=== PATIENT | female | born 1990 | race Two or more races ===

== ENCOUNTER → 2016-11-14 | Day surgery (SDC) | payer BC ==
[~2016-11-14] MED LIST: IV RINGERS,LACTATED 1000ML 1,000 ML IV SCH; LIDOCAINE 1% 1 ML SYRINGE. ID PRN; LIDOCAINE 2% PF Vial for OR 5 ML VIAL. ONE; MIDAZOLAM HCL/PF 2 MG/2 ML VIAL. IV PRN; PROPOFOL 20 ML IV ONE; PROPOFOL 40 ML IV ONE; fentaNYL PF VIAL 100 MCG/2 ML VIAL IV PRN
[2016-11-14 09:47] LABS: NEG OBC UR NEG; POS OBC UR POS
[2016-11-14 10:57] VITALS: BP 110/71
--- NOTE | 2016-11-17 14:24 | PATHOLOGY ---
PATHOLOGY REPORT * * * * * * * * FINAL DIAGNOSIS: A. Duodenal biopsies: - No significant pathologic abnormalities. B. Random colon biopsies: - No significant pathologic abnormalities. (JPM:pit; 11/17/2016) COMMENT: Sections of the duodenal biopsy reveal segments of duodenal and small intestine mucosa. Where best oriented, the mucosal villi appear normal. There are no sprue-like changes or significant inflammatory changes. Sections of the random colon biopsy reveal multiple segments of colonic mucosa containing several mucosal-associated lymphoid aggregates. There is no evidence of a chronic destructive colitis, lymphocytic colitis or collagenous colitis. (JPM:pit; 11/17/2016) REPORT ELECTRONICALLY SIGNED BY: Eitan Menendez M.D. DATE/TIME: 11/17/2016 14:23 * * * * * * * * GROSS PATHOLOGY: A. Received in formalin labeled "Denise Herrera, duodenal biopsy rule out celiac disease," are multiple segments of neil soft tissue measuring 1.1 x 0.8 x 0.2 cm in aggregate dimensions and ranging from 0.2 to 0.4 cm in maximum dimension. The specimen is submitted entirely in cassette A1. B. Received in formalin labeled "Denise Herrera, random colon biopsies," are multiple segments of neil soft tissue measuring 1.4 x 0.8 x 0.2 cm in aggregate dimensions and ranging from 0.2 to 0.5 cm in maximum dimension. The specimen is submitted entirely in cassette B1. ([facility]; 11/14/2016) INITIAL CPT CODE(S): A; 27242 B; 63479 Professional services performed by [facility] at [address] [address] Technical services performed by [facility] at [address] [place] [address], [facility] [address] [address]. ELIO Vieyra SPECIMEN(S) RECEIVED: A.Duodenal biopsy B.Random colon biopsies CLINICAL HISTORY: Abdominal pain PATIENT: JEAN PIERRESCARDENISE J /AGE: 12 1990 (Age: 26) PATIENT #: [id number] ALT CASE #: SPECIMEN COLLECTION DATE: 11/14/2016 SPECIMEN RECEIVED DATE: 11/14/2016 [facility] - [address] [place] [address] - PHONE: [phone] * * * END OF REPORT * * *
== END | disposition home or self-care (01) ==
LOC: SURG 09:21
PROVIDERS: ATTEND Internal Medicine Gastroenterology
DX: K64.0 First degree hemorrhoids (principal); K29.50 Unspecified chronic gastritis without bleeding; K31.89 Other diseases of stomach and duodenum
CPT/HCPCS: 43239; 45380; 81025; 88305; J2704; J2001

== ENCOUNTER → 2016-12-03 | Outpatient (CLI) | payer BC ==
[2016-11-14 10:57] VITALS: BP 110/71
[~2016-12-03] VITALS: Ht 165.1 cm; Wt 93.0 kg
[~2016-12-03] MED LIST changes: -IV RINGERS,LACTATED 1000ML 1,000 ML IV SCH; -LIDOCAINE 1% 1 ML SYRINGE. ID PRN; -LIDOCAINE 2% PF Vial for OR 5 ML VIAL. ONE; -MIDAZOLAM HCL/PF 2 MG/2 ML VIAL. IV PRN; -PROPOFOL 20 ML IV ONE; -PROPOFOL 40 ML IV ONE; +SINCALIDE 2 MCG in IV NORMAL SALINE 50ML 30 ML IV ONE; -fentaNYL PF VIAL 100 MCG/2 ML VIAL IV PRN
--- NOTE | 2016-12-03 08:29 | RAD ---
EXAM: Abdomen sonogram. HISTORY: Pain. TECHNIQUE: Sonographic imaging of the abdomen was performed. COMPARISON: 05/19/2011. FINDINGS: The liver is normal in size. No focal hepatic lesion is seen. There is a 5 mm nonmobile echogenic lesion along the gallbladder wall, consistent with a polyp. The kidneys are normal in size. No solid or cystic renal lesion is seen. There is no hydronephrosis. The pancreas, spleen, aorta and inferior vena cava are unremarkable. IMPRESSION: 1. 5 mm gallbladder polyp. This is not seen on the prior study. 2. Otherwise, unremarkable abdomen sonogram.
--- NOTE | 2016-12-03 12:28 | RAD ---
EXAM: Nuclear hepatobiliary scan. HISTORY: Pain. TECHNIQUE: Following intravenous administration of 5.5 mCi Tc 99m Choletec, anterior images of the abdomen were obtained at five minute intervals through one hour. Subsequently, 2.0 mcg sincalide was administered and additional images to assess gallbladder ejection fraction were obtained. FINDINGS: There is prompt radiotracer uptake by the liver. No focal defect is seen. There is normal excretion into the biliary tree. The gallbladder is visualized within 30 minutes and there is free flow into the duodenum. The gallbladder ejection fraction is decreased at 22%. IMPRESSION: Decreased gallbladder ejection fraction of 22%.
== END | disposition home or self-care (01) ==
LOC: US 07:12
PROVIDERS: ATTEND Physician Assistant
DX: K82.4 Cholesterolosis of gallbladder (principal); R11.2 Nausea with vomiting, unspecified
CPT/HCPCS: 76700; 78226; 96374; 96375; A9537; J2805

== ENCOUNTER 2017-05-10 06:34 | Emergency (ER) | payer SELFPAY, BC | END 2017-05-10 07:14 | disposition home or self-care (01) | LOC: ER 06:34 | DX: H65.192 Other acute nonsuppurative otitis media, left ear (principal); H60.92 Unspecified otitis externa, left ear | CPT/HCPCS: 99283 ==

== ENCOUNTER 2018-12-23 20:05 | Emergency (ER) | payer BC ==
[~2018-12-23] VITALS: Ht 167.6 cm; Wt 97.5 kg
[~2018-12-23 20:05] MED LIST changes: +AMOX1TAB61 PO; +NEOM10SO7 OT; +OXYC1TAB15 PO; -SINCALIDE 2 MCG in IV NORMAL SALINE 50ML 30 ML IV ONE
--- NOTE | 2018-12-23 20:26 | PHYS DOC ---
Past Medical History Past Medical History: No Pertinent History Additional Past Medical Histor: "HEART WAS SLOW" Past Surgical History: Cholecystectomy Alcohol Use: None Drug Use: None Adult General Chief Complaint Chief Complaint: HEADACHE HPI HPI 28-year-old female presents to the emergency room with complaints of migraine headache. Patient states her headache started on Thursday persistent throughout the last couple of days. She describes history of migraines, with this one she's had some left blurry vision. She also describes nausea as well as vomiting. Blood pressure 04/03/71, heart rate 78. She denies any chest pain, shortness of breath, abdominal pain. Nothing makes her symptoms worse, nothing makes her symptoms better. Review of Systems Review of Systems Constitutional: Denies fever or chills [] Eyes: left eye blurry vision, redness, or eye pain [] HENT: Denies nasal congestion or sore throat [] Respiratory: Denies cough or shortness of breath [] Cardiovascular: No additional information not addressed in HPI [] GI: + nausea, + vomiting, no bloody stools or diarrhea [] : Denies dysuria or hematuria [] Musculoskeletal: Denies back pain or joint pain [] Integument: Denies rash or skin lesions [] Neurologic: Denies headache, focal weakness or sensory changes [] All other systems were reviewed and found to be within normal limits, except as documented in this note. Current Medications Current Medications Current Medications Medications (Trade) Dose Ordered Sig/Celia Start Time Stop Time Status Last Admin Dose Admin Diphenhydramine HCl (Benadryl) 50 mg 1X ONCE 12/23/18 21:45 12/23/18 21:46 DC 12/23/18 21:53 50 MG Ketorolac Tromethamine (Toradol 30mg Vial) 30 mg 1X ONCE 12/23/18 21:45 12/23/18 21:46 DC 12/23/18 21:53 30 MG Metoclopramide HCl (Reglan Vial) 10 mg 1X ONCE 12/23/18 21:45 12/23/18 21:46 DC 12/23/18 21:53 10 MG Sodium Chloride 1,000 ml @ 1,000 mls/hr 1X ONCE 12/23/18 21:00 12/23/18 21:59 DC 12/23/18 21:52 1,000 MLS/HR Allergies Allergies Allergies Coded Allergies Type Severity Reaction Last Updated Verified No Known Drug Allergies 11/14/16 No Physical Exam Physical Exam Constitutional: Well developed, well nourished, mild distress 2/2 pain, non- toxic appearance. [] HENT: Normocephalic, atraumatic, bilateral external ears normal, oropharynx moist, no oral exudates, nose normal. [] Eyes: PERRLA, EOMI, conjunctiva normal, no discharge. [] Neck: Normal range of motion, no tenderness, supple, no stridor. [] Cardiovascular:Heart rate regular rhythm, no murmur [] Lungs & Thorax: Bilateral breath sounds clear to auscultation [] Abdomen: Bowel sounds normal, soft, no tenderness, no masses, no pulsatile masses. [] Skin: Warm, dry, no erythema, no rash. [] Extremities: No tenderness, no cyanosis, no clubbing, ROM intact, no edema. [] Neurologic: Alert and oriented X 3, no focal deficits noted. [] Psychologic: Affect normal, judgement normal, mood normal. [] Current Patient Data Lab Values Laboratory Tests Test 12/23/18 20:31 12/23/18 20:40 12/23/18 21:00 POC Urine HCG, Qualitative Hcg negative (Negative) White Blood Count 7.8 x10^3/uL (4.0-11.0) Red Blood Count 4.85 x10^6/uL (3.50-5.40) Hemoglobin 14.0 g/dL (12.0-15.5) Hematocrit 41.1 % (36.0-47.0) Mean Corpuscular Volume 85 fL (79-100) Mean Corpuscular Hemoglobin 29 pg (25-35) Mean Corpuscular Hemoglobin Concent 34 g/dL (31-37) Red Cell Distribution Width 13.2 % (11.5-14.5) Platelet Count 255 x10^3/uL (140-400) Neutrophils (%) (Auto) 56 % (31-73) Lymphocytes (%) (Auto) 32 % (24-48) Monocytes (%) (Auto) 7 % (0-9) Eosinophils (%) (Auto) 3 % (0-3) Basophils (%) (Auto) 1 % (0-3) Neutrophils # (Auto) 4.4 x10^3/uL (1.8-7.7) Lymphocytes # (Auto) 2.5 x10^3/uL (1.0-4.8) Monocytes # (Auto) 0.6 x10^3/uL (0.0-1.1) Eosinophils # (Auto) 0.2 x10^3/uL (0.0-0.7) Basophils # (Auto) 0.1 x10^3/uL (0.0-0.2) Sodium Level 143 mmol/L (136-145) Potassium Level 3.4 mmol/L (3.5-5.1) L Chloride Level 107 mmol/L (98-107) Carbon Dioxide Level 27 mmol/L (21-32) Anion Gap 9 (6-14) Blood Urea Nitrogen 13 mg/dL (7-20) Creatinine 0.9 mg/dL (0.6-1.0) Estimated GFR (Cockcroft-Gault) 75.1 BUN/Creatinine Ratio 14 (6-20) Glucose Level 99 mg/dL (70-99) Calcium Level 8.8 mg/dL (8.5-10.1) Total Bilirubin 0.3 mg/dL (0.2-1.0) Aspartate Amino Transferase (AST) 21 U/L (15-37) Alanine Aminotransferase (ALT) 32 U/L (14-59) Alkaline Phosphatase 102 U/L (46-116) Total Protein 7.3 g/dL (6.4-8.2) Albumin 3.7 g/dL (3.4-5.0) Albumin/Globulin Ratio 1.0 (1.0-1.7) Laboratory Tests 12/23/18 20:40 Laboratory Tests 12/23/18 21:00 EKG EKG [] Radiology/Procedures Radiology/Procedures [facility] [address] [place], [place] [id number] IMAGING REPORT Signed PATIENT: SHAYY GREENFIELD ACCOUNT: [id number] : 1990 LOCATION: ER AGE: 28 SEX: F EXAM STATUS: REG ER ORD. PHYSICIAN: CARMITA KWONG MD REASON: headache (since Thursday), migraine history PROCEDURE: CT HEAD WO CONTRAST CT Head W/O Contrast: History: Headache Comparison: none Axial images were obtained without contrast. The gordon and white matter appears normal and symmetrical for the patients age. There is no mass effect, extraaxial fluid collections or hydrocephalus. There is no gross bleed. There is no focal loss of gordon-white matter distinction to suggest acute ischemia, i.e. stroke. Impression: No acute findings. PQRS Compliance Statement: One or more of the following individualized dose reduction techniques were utilized for this examination: 1. Automated exposure control 2. Adjustment of the mA and/or kV according to patient size 3. Use of iterative reconstruction technique Electronically signed by: Rachel Johnson III, MD (12/23/2018 9:17 PM) [facility] DICTATED and SIGNED BY: RACHEL JOHNSON III, MD DATE: 12/23/182116 [] Course & Med Decision Making Course & Med Decision Making Pertinent Labs and Imaging studies reviewed. (See chart for details) []28-year-old female presents to the emergency room with complaints of migraine headache. Patient states her headache started on Thursday persistent throughout the last couple of days. She describes history of migraines, with this one she's had some left blurry vision. She also describes nausea as well as vomiting. Blood pressure 04/03/71, heart rate 78. She denies any chest pain, shortness of breath, abdominal pain. Nothing makes her symptoms worse, nothing makes her symptoms better. CT head negative for acute process Labs reviewed Reglan, benadryl, Toradol IV NS IVF Bolus Patient evaluated at 2245 states her pain in her head is resolved, her blurry vision has resolved as well. I'm for discharge at this time. Discussed with patient regarding follow-up with the primary care physician and maintenance therapy regarding migraine headaches. Dragon Disclaimer Dragon Disclaimer This electronic medical record was generated, in whole or in part, using a voice recognition dictation system. Departure Departure Impression: Primary Impression: Migraine headache Disposition: 01 HOME, SELF-CARE Condition: STABLE Referrals: UNKNOWN PCP NAME (PCP) Patient Instructions: Migraine Headache, [id number] Additional Instructions: Recommend follow up with PCP 3 - 5 days to discuss maintenance medications regarding migraines Return to the ER with worsening symptoms, intractable pain, fever, altered mental status Tylenol/Motrin as needed for pain Problem Qualifiers Primary Impression: Migraine headache Migraine type: unspecified Status migrainosus presence: without status migrainosus Intractability: intractable Qualified Codes: G43.919 - Migraine, unspecified, intractable, without status migrainosus CARMITA KWONG MD Dec 23, 2018 20:26
[2018-12-23 20:47] LABS: BASO # 0.1 x10^3/uL (0.0-0.2); BASO % 1 % (0-3); EOS # 0.2 x10^3/uL (0.0-0.7); EOS % 3 % (0-3); HEMATOCRIT 41.1 % (36.0-47.0); LYMPH # 2.5 x10^3/uL (1.0-4.8); LYMPH % 32 % (24-48); MEAN CORPUSCULAR HEMOGLOBIN 29 pg (25-35); MEAN CORPUSCULAR HGB CONC 34 g/dL (31-37); MEAN CORPUSCULAR VOLUME 85 fL (79-100); MONO # 0.6 x10^3/uL (0.0-1.1); MONO % 7 % (0-9); NEUT # 4.4 x10^3/uL (1.8-7.7); NEUT % 56 % (31-73); PLATELET COUNT 255 x10^3/uL (140-400); RED BLOOD COUNT 4.85 x10^6/uL (3.50-5.40); RED CELL DISTRIBUTION WIDTH 13.2 % (11.5-14.5); WHITE BLOOD COUNT 7.8 x10^3/uL (4.0-11.0)
[2018-12-23] MEDS ORDERED: IV NORMAL SALINE 1000ML BAG 1,000 ML IV ONE (21:00)
--- NOTE | 2018-12-23 21:20 | RAD ---
CT Head W/O Contrast: History: Headache Comparison: none Axial images were obtained without contrast. The gordon and white matter appears normal and symmetrical for the patients age. There is no mass effect, extraaxial fluid collections or hydrocephalus. There is no gross bleed. There is no focal loss of gordon-white matter distinction to suggest acute ischemia, i.e. stroke. Impression: No acute findings. RS Compliance Statement: One or more of the following individualized dose reduction techniques were utilized for this examination: 1. Automated exposure control 2. Adjustment of the mA and/or kV according to patient size 3. Use of iterative reconstruction technique Electronically signed by: Jose Armando Flores III, MD (12/23/2018 9:17 PM) [facility]
[2018-12-23 21:28] LABS: CALCIUM 8.8 mg/dL (8.5-10.1); CREATININE 0.9 mg/dL (0.6-1.0); GFR 75.1; POTASSIUM 3.4 mmol/L (3.5-5.1)
[2018-12-23 21:40] LABS: ALBUMIN 3.7 g/dL (3.4-5.0); TOTAL BILIRUBIN 0.3 mg/dL (0.2-1.0); TOTAL PROTEIN 7.3 g/dL (6.4-8.2)
[2018-12-23] MEDS ORDERED: KETOROLAC 30 MG/ML VIAL. IVP ONE (21:45)
[2018-12-23] MEDS ORDERED: diphenhydrAMINE 50 MG/ML VIAL IVP ONE (21:45)
[2018-12-23] MEDS ORDERED: METOCLOPRAMIDE HCL 10 MG/2 ML VIAL. IVP ONE (21:45)
[2018-12-24 00:03] VITALS: BP 111/67
== END 2018-12-24 00:23 | disposition home or self-care (01) ==
LOC: ER 20:05
DX: G43.919 Migraine, unspecified, intractable, without status migrainosus (principal); R11.2 Nausea with vomiting, unspecified; Z90.49 Acquired absence of other specified parts of digestive tract
CPT/HCPCS: 36415; 70450; 80053; 81025; 85025; 96361; 96374; 96375; 99285; J1200; J1885; J2765; J7030

== ENCOUNTER 2019-03-15 07:53 | Emergency (ER) | payer BC ==
[~2019-03-15] VITALS: Ht 167.6 cm; Wt 96.6 kg
--- NOTE | 2019-03-15 08:51 | PHYS DOC ---
Past Medical History Past Medical History: No Pertinent History Additional Past Medical Histor: "HEART WAS SLOW" Past Surgical History: Cholecystectomy Alcohol Use: None Drug Use: None Adult General Chief Complaint Chief Complaint: KNEE INJURY [facility] HPI Patient is a 29 year old without history of medical problem who presents with complaint of right knee injury. Patient states she had right knee injury 3 years ago and since then has had episodes of giving up of her knee. Patient states she had another episode of giving of her knee at 1 AM today and fell and landed on right knee without loss of consciousness or other injuries. Patient rated her right knee 8/10 and denies focal neuro deficit. Review of Systems Review of Systems Constitutional: Denies fever or chills [] Eyes: Denies change in visual acuity, redness, or eye pain [] HENT: Denies nasal congestion or sore throat [] Respiratory: Denies cough or shortness of breath [] Cardiovascular: No additional information not addressed in HPI [] GI: Denies abdominal pain, nausea, vomiting, bloody stools or diarrhea [] : Denies dysuria or hematuria [] Musculoskeletal: Denies back pain, reports joint pain [] Integument: Denies rash or skin lesions [] Neurologic: Denies headache, focal weakness or sensory changes [] Endocrine: Denies polyuria or polydipsia [] All other systems were reviewed and found to be within normal limits, except as documented in this note. Current Medications Current Medications Current Medications Medications (Trade) Dose Ordered Sig/Celia Start Time Stop Time Status Last Admin Dose Admin Acetaminophen/ Hydrocodone Bitart (Lortab 5/325) 1 tab 1X ONCE 03/15/19 09:00 03/15/19 09:01 DC 03/15/19 08:55 1 TAB Allergies Allergies Allergies Coded Allergies Type Severity Reaction Last Updated Verified No Known Drug Allergies 11/14/16 No Physical Exam Physical Exam Constitutional: Well developed, well nourished, mild distress, non-toxic appearance. [] HENT: Normocephalic, atraumatic. Eyes: PERRLA, EOMI, conjunctiva normal, no discharge. [] Neck: Normal range of motion, no tenderness, supple, no stridor. [] Cardiovascular:Heart rate regular rhythm, no murmur [] Lungs & Thorax: Bilateral breath sounds clear to auscultation [] Back: No tenderness, no CVA tenderness. [] Extremities: Right knee without edema or ecchymosis, painful range of motion, No tenderness, no cyanosis, no clubbing, no edema. [] Neurologic: Alert and oriented X 3, no focal deficits noted. [] Psychologic: Affect normal, judgement normal, mood normal. [] Current Patient Data Vital Signs Vital Signs Date Time Temp Pulse Resp B/P (MAP) Pulse Ox O2 Delivery O2 Flow Rate FiO2 03/15/19 08:55 19 97 Room Air 03/15/19 08:10 97.7 70 121/58 (79) 97.7 EKG EKG [] Radiology/Procedures Radiology/Procedures [][facility] [address] [place], [place] [id number] IMAGING REPORT Signed PATIENT: SHAYY GREENFIELD ACCOUNT: [id number] : 1990 LOCATION: ER AGE: 29 SEX: F EXAM STATUS: REG ER ORD. PHYSICIAN: MATEUSZ VALENTINE MD REASON: fall PROCEDURE: KNEE RIGHT 4V Examination: KNEE RIGHT 4V History: Fall, pain Comparison/Correlation: None Findings: Total of 4 images of the right knee were obtained including patellar sunrise view. Joint spaces are normal. No acute fracture or bony destruction. Minimal knee joint effusion is present. No degenerative change. Impression: Minimal knee joint effusion. Electronically signed by: Crispin Cheney MD (03/15/2019 9:49 AM) [facility] DICTATED and SIGNED BY: CRISPIN CHENEY MD DATE: 03/15/19 0949 Course & Med Decision Making Course & Med Decision Making Pertinent Imaging studies reviewed. (See chart for details) I've spoken with the patient and/or caregivers. I've explained the patient's condition, diagnosis and treatment plan based on information available to me at this time. I've answered the patient's and/or caregivers questions and addressed any concerns. The patient and/or caregivers have a good understanding the patient's diagnosis, condition and treatment plan as can be expected at this point. Vital signs have been stabilized. The patient's condition is stable for discharge from the emergency department. The patient will pursue further outpatient evaluation with her primary care provider or other designated consulting physician as outlined in the discharge instructions. Patient and/or caregivers are agreeable to this plan of care and follow-up instructions have been explained in detail. The patient and/or caregivers have received these instructions in written format and expressed understanding of these discharge instructions. The patient and her caregivers are aware that if any significant change in condition or worsening of symptoms should prompt him to immediately return to this of the closest emergency department. If an emergent department is not readily available I would encourage him to call 911. Dragon Disclaimer Dragon Disclaimer This electronic medical record was generated, in whole or in part, using a voice recognition dictation system. Departure Departure Impression: Primary Impression: Knee effusion, right Additional Impression: Right knee injury Disposition: HOME, SELF-CARE (at 1001) Condition: IMPROVED Referrals: UNKNOWN PCP NAME (PCP) LINDSEY POOLE MD Patient Instructions: Knee Effusion Additional Instructions: Apply ice on right knee Follow-up with your primary care physician in 3-5 days Return to ER if not getting better Thank you for visiting [facility]. We appreciate you trusting us with your care. If any additional problems come up don't hesitate to return to visit us. Please follow up with your primary care provider so they can plan additional care if needed and know about the problem that you had. If symptoms worsen come back to the Emergency Department. Any concerning symptoms that start such as chest pain, shortness of air, weakness or numbness on one side of the body, running high fevers or any other concerning symptoms return to the ER. Scripts Hydrocodone/Apap 5-325 (NORCO 5-325 TABLET) 1 Each Tablet 1 TAB PO PRN Q6HRS PRN for PAIN, #10 TAB 0 Refills Prov: MATEUSZ VALENTINE MD 03/15/19 Naproxen (NAPROSYN) 500 Mg Tablet 1 TAB PO BID for pain, #20 TAB Prov: MATEUSZ VALENTINE MD 03/15/19 Problem Qualifiers Additional Impression: Right knee injury Encounter type: initial encounter Qualified Codes: S89.91XA - Unspecified injury of right lower leg, initial encounter MATEUSZ VALENTINE MD Mar 15, 2019 08:51
[2019-03-15] MEDS: HYDROcodone/APAP 5/325MG 1 TAB TABLET PO ONE (08:55)
--- NOTE | 2019-03-15 09:52 | RAD ---
Examination: KNEE RIGHT 4V History: Fall, pain Comparison/Correlation: None Findings: Total of 4 images of the right knee were obtained including patellar sunrise view. Joint spaces are normal. No acute fracture or bony destruction. Minimal knee joint effusion is present. No degenerative change. Impression: Minimal knee joint effusion. Electronically signed by: Crispin Whitman MD (03/15/2019 9:49 AM) [facility]
[2019-03-15] MEDS ORDERED: HYDR-3164 PO (10:05)
[2019-03-15] MEDS ORDERED: NAPR-683 PO (10:05)
[2019-03-15 10:30] VITALS: BP 107/62
== END 2019-03-15 10:30 | disposition home or self-care (01) ==
LOC: ER 07:53
DX: S89.81XA Other specified injuries of right lower leg, initial encounter (principal); M25.461 Effusion, right knee; Z90.49 Acquired absence of other specified parts of digestive tract; Z98.890 Other specified postprocedural states; W18.39XA Other fall on same level, initial encounter; Y93.89 Activity, other specified; Y92.89 Other specified places as the place of occurrence of the external cause; Y99.8 Other external cause status
CPT/HCPCS: 73564; 99284

== ENCOUNTER 2019-10-08 23:39 | Emergency (ER) | payer SELFPAY ==
[~2019-10-08] VITALS: Ht 167.6 cm; Wt 82.3 kg
[~2019-10-08 23:39] MED LIST changes: +HYDR-3164 PO; +NAPR-683 PO
--- NOTE | 2019-10-08 23:58 | PHYS DOC ---
Past Medical History Additional Past Medical Histor: "HEART WAS SLOW", Ovarian cysts Past Surgical History: Cholecystectomy Smoking Status: Never Smoker Alcohol Use: None Drug Use: None General Adult EDM: Chief Complaint: CHEST PAIN-CARDIAC NATURE HPI: HPI: 29-year-old female presents with report of chest pain with radiation down her right arm and shoulder which started tonight. Patient also complains of 1 month history of left lower quadrant abdominal pain with associated nausea and vomiting. Patient denies any diarrhea. Patient does report she has lost ap proximately 17 pounds within the last month due to her consistent nausea and vomiting. Denies known sick contacts. Patient reports she currently does not have insurance and therefore had difficulty finding a physician to follow with. Reports she was able to get an appointment but is not until the middle of October. Patient reports concern tonight due to this new chest pain. Denies leg swelling or calf tenderness. Denies history or family history of PE/DVT. Patient does report history of ovarian cyst. Denies . Reports she currently has a Nexplanon implant. Review of Systems: Review of Systems: Constitutional: Denies fever or chills Eyes: Denies redness or eye pain HENT: Denies nasal congestion or sore throat Respiratory: Denies cough or shortness of breath Cardiovascular: Reports chest pain; denies palpitations GI: Reports left lower quadrant abdominal pain, nausea, and vomiting; denies diarrhea : Denies dysuria or hematuria Musculoskeletal: Denies back pain or joint pain Integument: Denies rash or skin lesions Neurologic: Denies headache, focal weakness or sensory changes Complete systems were reviewed and found to be within normal limits, except as documented in this note. Heart Score: HEART Score for Chest Pain: HEART Score for Chest Pain Response (Comments) Value History Slighlty/Non-Suspicious 0 ECG Normal 0 Age < 45 0 Risk Factors No Risk Factors 0 Troponin < Normal Limit 0 Total 0 Risk Factors: Risk Factors: DM, Current or recent (<one month) smoker, HTN, HLP, family history of CAD, obesity. Risk Scores: Score 0 - 3: 2.5% MACE over next 6 weeks - Discharge Home Score 4 - 6: 20.3% MACE over next 6 weeks - Admit for Clinical Observation Score 7 - 10: 72.7% MACE over next 6 weeks - Early Invasive Strategies Current Medications: Current Medications Medications (Trade) Dose Ordered Sig/Celia Start Time Stop Time Status Last Admin Dose Admin Famotidine (Pepcid Vial) 20 mg 1X ONCE 10/09/19 00:00 10/09/19 00:01 Sodium Chloride 1,000 ml @ 1,000 mls/hr 1X ONCE 10/09/19 00:00 10/09/19 00:59 Allergies: Allergies: Allergies Coded Allergies Type Severity Reaction Last Updated Verified No Known Drug Allergies 11/14/16 No Physical Exam: PE: Constitutional: Well developed, well nourished, anxious, non-toxic appearance HENT: Normocephalic, atraumatic Eyes: Conjunctiva normal, no discharge Neck: Normal range of motion, no tenderness, supple Lungs & Thorax: No respiratory distress, equal chest rise and fall Abdomen: Soft, left lower quadrant tenderness, no guarding/rebound tenderness/distention Skin: Warm, dry, no erythema, no rash Back: No tenderness, no CVA tenderness Extremities: No tenderness, ROM intact, no edema Neurologic: Alert and oriented X 3, no focal deficits noted Psychologic: Affect anxious, judgment normal EKG: EKG: @2347 Sinus bradycardia at 50bpm, NO ST elevation, QRS 80ms, QT/QTc 424/385ms Radiology/Procedures: Radiology/Procedures: PROCEDURE: CT ANGIO CHEST W ABD PEL W/ INDICATION: Reason: chest pain eval for PE, LLQ pain with N/V, OMNI 350, 90 ML IV / Spl. Instructions: / History: COMPARISON: None. TECHNIQUE: Axial CT images obtained through the chest, abdomen and pelvis with contrast. Three-dimensional images processed chest. One or more of the following individualized dose reduction techniques were utilized for this examination: 1. Automated exposure control; 2. Adjustment of the mA and/or kV according to patient size; 3. Use of iterative reconstruction technique. FINDINGS: Chest: No evidence of pneumothorax. Sub-4 mm nodule in the right lung, most commonly benign in a patient of this age. No focal airspace consolidation to suggest pneumonia. Portion of the descending thoracic aorta is obscured by motion. No aneurysm or dissection flap in the visualized portion of thoracic aorta. No definite pulmonary embolus. Mild limitation peripherally. Abdomen and pelvis: Postcholecystectomy changes. Mild low density of portal triads. No peripancreatic fluid collection. Spleen unremarkable. No hydronephrosis. Urinary bladder is partially distended. Uterus is visualized. No periappendiceal inflammatory changes. No dilated loops of bowel to suggest obstruction. IMPRESSION: * No central pulmonary embolus. * Mild low density of the portal triads. Correlate with symptoms and laboratory markers to ensure that there is not a pathologic cause such as cholangitis or hepatitis. Electronically signed by: Javier Tejada MD (10/09/2019 3:00 AM) [id number] Course & Med Decision Making: Course & Med Decision Making Pertinent Labs and Imaging studies reviewed. (See chart for details) Patient presents with report of atypical chest pain. No cardiac risk factors noted. EKG stable. Labs obtained and posted to chart. Initial troponin within normal limits. Patient also reports 1 month long history of left lower quadrant abdominal discomfort with associated nausea and vomiting. Reports she has lost 17 pounds in the last month. CTA chest and CT abdomen/pelvis with IV contrast obtained without significant finding. Patient does have a history of ovarian cysts and had continued to have discomfort. Ultrasound therefore obtained without findings consistent for ovarian torsion. Patient stable for discharge with outpatient follow-up with PCP/COLLEGE ADVISOR/GI. COLLEGE ADVISOR and GI referrals provided. Discussed findings and plan with patient, who acknowledges understanding and agreement. Dragon Disclaimer: Dragon Disclaimer: This electronic medical record was generated, in whole or in part, using a voice recognition dictation system. Departure Departure Impression: Primary Impression: Abdominal pain Qualified Codes: R10.32 - Left lower quadrant pain Additional Impression: Atypical chest pain Disposition: 01 HOME, SELF-CARE Condition: STABLE Referrals: UNKNOWN PCP NAME (PCP) TWIN MONAHAN Jr, MD, SCOTT S MD Patient Instructions: Abdominal Pain (Nonspecific), Chest Pain (Nonspecific), [id number] Scripts Hydrocodone/Apap 5-325 (NORCO 5-325 TABLET) 1 Each Tablet 0.5-1 TAB PO PRN Q6HRS PRN for PAIN, #10 TAB 0 Refills Prov: SURAJ LEOS DO 10/09/19 Ondansetron (ONDANSETRON ODT) 4 Mg Tab.rapdis 1 TAB PO PRN Q6-8HRS PRN for NAUSEA, #16 TAB Prov: SURAJ LEOS DO 10/09/19 Famotidine (PEPCID) 20 Mg Tablet 20 MG PO BID for 10 Days, #20 TAB Prov: SURAJ LEOS DO 10/09/19 Justicifation of Admission Dx: Justifications for Admission: Justification of Admission Dx: N/A SURAJ LEOS DO Oct 08, 2019 23:58
[2019-10-09] MEDS ORDERED: FAMOTIDINE 20 MG/2 ML VIAL IVP ONE
[2019-10-09 00:17] LABS: BASO # 0.1 x10^3/uL (0.0-0.2); BASO % 1 % (0-3); EOS # 0.2 x10^3/uL (0.0-0.7); EOS % 3 % (0-3); HEMATOCRIT 41.1 % (36.0-47.0); HEMOGLOBIN 13.9 g/dL (12.0-15.5); LYMPH # 3.6 x10^3/uL (1.0-4.8); LYMPH % 49 % (24-48); MEAN CORPUSCULAR HEMOGLOBIN 29 pg (25-35); MEAN CORPUSCULAR HGB CONC 34 g/dL (31-37); MEAN CORPUSCULAR VOLUME 85 fL (79-100); MONO # 0.7 x10^3/uL (0.0-1.1); MONO % 10 % (0-9); NEUT # 2.8 x10^3/uL (1.8-7.7); NEUT % 38 % (31-73); PLATELET COUNT 160 x10^3/uL (140-400); RED BLOOD COUNT 4.83 x10^6/uL (3.50-5.40); WHITE BLOOD COUNT 7.3 x10^3/uL (4.0-11.0)
[2019-10-09 00:27] LABS: CALCIUM 9.5 mg/dL (8.5-10.1); POTASSIUM 3.4 mmol/L (3.5-5.1)
[2019-10-09] MEDS ORDERED: KETOROLAC 15 MG/ML VIAL. IVP ONE (00:30)
[2019-10-09] MEDS ORDERED: ONDANSETRON PF 4 MG/2 ML VIAL. IVP ONE ×2 (00:30→02:00)
[2019-10-09 00:33] LABS: ALBUMIN 4.2 g/dL (3.4-5.0); ALBUMIN/GLOBULIN RATIO 1.2 (1.0-1.7); MAGNESIUM 2.2 mg/dL (1.8-2.4); TOTAL BILIRUBIN 0.5 mg/dL (0.2-1.0); TOTAL PROTEIN 7.7 g/dL (6.4-8.2)
[2019-10-09 00:42] LABS: CREATINE KINASE 75 U/L (26-192)
[2019-10-09] MEDS ORDERED: IOHEXOL 350 MG/ML 100 ML VIAL. IV ONE (01:00)
[2019-10-09] MEDS ORDERED: CONTRAST GIVEN. MC PRN (01:00)
[2019-10-09 01:20] LABS: PREG TEST PT QUAL NEGATIVE (NEG)
[2019-10-09 01:59] LABS: BILIRUBIN,URINE NEGATIVE (NEG); CLARITY,URINE CLEAR; COLOR,URINE YELLOW; NITRITE,URINE NEGATIVE (NEG); PROTEIN,URINE NEGATIVE (NEG-TRACE); UROBILINOGEN,URINE 0.2 mg/dL (0.2 mg/dL)
[2019-10-09 02:03] LABS: BACTERIA,URINE MODERATE /HPF (0-FEW); RBC,URINE 0 /HPF (0-2); SQUAMOUS EPITHELIAL CELL,UR MANY /LPF
[2019-10-09 02:06] LABS: AMPHETAMINE/METHAMPHETAMINE NEG (NEG); BARBITURATES NEG (NEG); BENZODIAZEPINES NEG (NEG); CANNABINOIDS NEG (NEG); COCAINE NEG (NEG); METHADONE NEG (NEG); OPIATES POS (NEG); PHENCYCLIDINE NEG (NEG)
--- NOTE | 2019-10-09 03:03 | RAD ---
INDICATION: Reason: chest pain eval for PE, LLQ pain with N/V, OMNI 350, 90 ML IV / Spl. Instructions: / History: COMPARISON: None. TECHNIQUE: Axial CT images obtained through the chest, abdomen and pelvis with contrast. Three-dimensional images processed chest. One or more of the following individualized dose reduction techniques were utilized for this examination: 1. Automated exposure control; 2. Adjustment of the mA and/or kV according to patient size; 3. Use of iterative reconstruction technique. FINDINGS: Chest: No evidence of pneumothorax. Sub-4 mm nodule in the right lung, most commonly benign in a patient of this age. No focal airspace consolidation to suggest pneumonia. Portion of the descending thoracic aorta is obscured by motion. No aneurysm or dissection flap in the visualized portion of thoracic aorta. No definite pulmonary embolus. Mild limitation peripherally. Abdomen and pelvis: Postcholecystectomy changes. Mild low density of portal triads. No peripancreatic fluid collection. Spleen unremarkable. No hydronephrosis. Urinary bladder is partially distended. Uterus is visualized. No periappendiceal inflammatory changes. No dilated loops of bowel to suggest obstruction. IMPRESSION: * No central pulmonary embolus. * Mild low density of the portal triads. Correlate with symptoms and laboratory markers to ensure that there is not a pathologic cause such as cholangitis or hepatitis. Electronically signed by: Javier Tejada MD (10/09/2019 3:00 AM) [id number]
[2019-10-09] MEDS ORDERED: METOCLOPRAMIDE HCL 10 MG/2 ML VIAL. IVP ONE (03:30)
[2019-10-09] MEDS ORDERED: diphenhydrAMINE 50 MG/ML VIAL IVP ONE (03:30)
[2019-10-09] MEDS ORDERED: IV NORMAL SALINE 1000ML BAG 1,000 ML IV ONE ×2 (04:00)
--- NOTE | 2019-10-09 06:07 | RAD ---
INDICATION: Reason: left pelvic pain eval for torsion / Spl. Instructions: / History: COMPARISON: CT from same day TECHNIQUE: Grayscale and color ultrasound images uterus and adnexa. FINDINGS: Uterus: 96 x 55 x 35 mm. Endometrial Stripe: 6 mm. Right Ovary: 33 x 33 x 19 mm. Left Ovary: 28 x 28 x 19 mm. Vascular flow identified to bilateral ovaries. IMPRESSION: * Ovarian follicles are seen with vascular flow to the bilateral ovaries. Electronically signed by: Javier Tejada MD (10/09/2019 6:05 AM) [id number]
[2019-10-09] MEDS ORDERED: FAMO-63 PO (06:17)
[2019-10-09] MEDS ORDERED: ONDA4TAB12 PO (06:17)
[2019-10-09] MEDS ORDERED: HYDR-3164 PO (06:21)
[2019-10-09 06:28] VITALS: BP 120/79
--- NOTE | 2019-10-10 15:17 | EKG ---
[facility] [address] [place] [address] Test Date: 2019-10-08 Test Time: 23:47:21 Pat Name: SHAYY GREENFIELD Department: Room: Gender: F Endo Tech: : 1990 Requested By: SURAJ LEOS Order Number: [id number] Reading MD: Measurements Intervals [place] Rate: 50 P: 0 LA: 98 QRS: 60 QRSD: 80 T: 49 QT: 424 QTc: 385 Interpretive Statements SINUS RHYTHM NO SPECIFIC ECG ABNORMALITIES RI6.01 No previous ECG available for comparison
== END 2019-10-09 06:45 | disposition home or self-care (01) ==
LOC: ER 23:39
DX: R10.32 Left lower quadrant pain (principal); R07.89 Other chest pain; R11.2 Nausea with vomiting, unspecified; Z90.49 Acquired absence of other specified parts of digestive tract
CPT/HCPCS: 36415; 71275; 74177; 76830; 76856; 80053; 80307; 81001; 82553; 83690; 83735; 83880; 84484; 84703; 85025; 87086; 96361; 96374; 96375; 96376; 99285; J1200; J1885; J2060; J2405; J2765; J3490; J7030; Q9967; 93005

== ENCOUNTER 2020-12-24 08:35 | Emergency (ER) | payer SELFPAY ==
[~2020-12-24] VITALS: Ht 165.1 cm; Wt 89.2 kg
[~2020-12-24 08:35] MED LIST changes: +FAMO-63 PO; +ONDA4TAB12 PO
[2020-12-24] MEDS ORDERED: IV NORMAL SALINE 1000ML BAG 1,000 ML IV ONE (09:30)
[2020-12-24] MEDS ORDERED: ONDANSETRON PF 4 MG/2 ML VIAL. IVP ONE (09:30)
[2020-12-24] MEDS ORDERED: MORPHINE SULFATE 2 MG/ML INJ. IVP ONE (09:30)
[2020-12-24 09:49] LABS: BASO # 0.1 x10^3/uL (0.0-0.2); BASO % 1 % (0-3); EOS # 0.3 x10^3/uL (0.0-0.7); EOS % 4 % (0-3); HEMATOCRIT 40.8 % (36.0-47.0); LYMPH # 1.7 x10^3/uL (1.0-4.8); LYMPH % 24 % (24-48); MEAN CORPUSCULAR HEMOGLOBIN 30 pg (25-35); MEAN CORPUSCULAR HGB CONC 34 g/dL (31-37); MEAN CORPUSCULAR VOLUME 86 fL (79-100); MONO # 0.5 x10^3/uL (0.0-1.1); MONO % 7 % (0-9); NEUT # 4.4 x10^3/uL (1.8-7.7); NEUT % 63 % (31-73); PLATELET COUNT 207 x10^3/uL (140-400); RED BLOOD COUNT 4.76 x10^6/uL (3.50-5.40); WHITE BLOOD COUNT 6.9 x10^3/uL (4.0-11.0)
--- NOTE | 2020-12-24 10:07 | PHYS DOC ---
Past Medical History Additional Past Medical Histor: "HEART WAS SLOW", Ovarian cysts Past Surgical History: Cholecystectomy Smoking Status: Never Smoker Alcohol Use: Occasionally Drug Use: None General Adult EDM: Chief Complaint: FLANK PAIN HPI: HPI: Patient is a 30 year old female who presents emergency department with complaints of intermittent right upper quadrant pain for the past 3 weeks, has been constant for the past 4 days, notices vomiting with increased pain after each meal. Last bowel movement was this past Thursday of loose stool. Reports radiation of pain through to right sided mid back. Reports 1 out of 10 pain to 10 out of 10 pain intermittent for the first 3 weeks however has been a constant 7 out of 10 pain for the past 4 days. Has not taken any pain medications at [facility]. Denies allergies to medications, reports last menstrual cycle normal duration of flow on November 24, 2020, has Implanon for control, reports gallbladder removal 6 years ago, no other surgeries. Denies vomiting or diarrhea today, reports mild nausea. Denies chest pain or shortness of breath, denies recent chills, denies cigarette smoking, occasional alcohol, denies illicit drug use. Denies seeing any blood in her urine or stool, denies urinary pressure, denies vaginal discharge or STI concerns. Patient denies other physical complaints or physical concerns. Review of Systems: Review of Systems: 14 body systems of review of systems have been reviewed. See HPI for pertinent positives and negative responses, otherwise all other systems are negative, nonpertinent or noncontributory. Constitutional: Negative except as outlined in HPI above. Skin: Negative except as outlined in HPI above. Eyes: Negative except as outlined in HPI above. HENT: Negative except as outlined in HPI above. Respiratory: Negative except as outlined in HPI above. Cardiovascular: Negative except as outlined in HPI above. GI: Negative except as outlined in HPI above. : Negative except as outlined in HPI above. Musculoskeletal: Negative except as outlined in HPI above. Integument: Negative except as outlined in HPI above. Neurologic: Negative except as outlined in HPI above. Endocrine: Negative except as outlined in HPI above. Lymphatic: Negative except as outlined in HPI above. Psychiatric: Negative except as outlined in HPI above. Heart Score: C/O Chest Pain: No Risk Factors: Risk Factors: DM, Current or recent (<one month) smoker, HTN, HLP, family history of CAD, obesity. Risk Scores: Score 0 - 3: 2.5% MACE over next 6 weeks - Discharge Home Score 4 - 6: 20.3% MACE over next 6 weeks - Admit for Clinical Observation Score 7 - 10: 72.7% MACE over next 6 weeks - Early Invasive Strategies Current Medications: Current Medications Medications (Trade) Dose Ordered Sig/Celia Start Time Stop Time Status Last Admin Dose Admin Morphine Sulfate (Morphine Sulfate) 2 mg 1X ONCE 12/24/20 09:30 12/24/20 09:31 DC 12/24/20 09:49 2 MG Ondansetron HCl (Zofran) 4 mg 1X ONCE 12/24/20 09:30 12/24/20 09:31 DC 12/24/20 09:45 4 MG Sodium Chloride 1,000 ml @ 1,000 mls/hr 1X ONCE 12/24/20 09:30 12/24/20 10:29 12/24/20 09:43 1,000 MLS/HR Allergies: Allergies: Allergies Coded Allergies Type Severity Reaction Last Updated Verified No Known Drug Allergies 12/24/20 No Physical Exam: PE: Constitutional: Well developed, well nourished, no acute distress, non-toxic appearance. 30-year-old female holding right upper abdomen during exam. HENT: Normocephalic, atraumatic. Eyes: Conjunctiva normal, no discharge. Neck: Normal range of motion, no stridor. Cardiovascular: No cyanosis appreciated, distal cap refill less than 2 seconds. Lungs & Thorax: Patient is in no respiratory distress, no audible adventitious lung sounds appreciated. Abdomen: Bowel sounds normal, soft, , no masses, no pulsatile masses. Right upper quadrant pain with palpation, positive Prather sign, negative psoas sign, negative McBurney's point tenderness, negative rebound tenderness. No disco loration of the abdomen appreciated. Skin: Warm, dry, no erythema, no rash. Back: No tenderness, no deformities. Right-sided CVA TTP, no left-sided CVA TTP. Extremities: No tenderness, no cyanosis, no clubbing, ROM intact, no edema. Neurologic: Alert and oriented X 3, normal motor function, normal sensory function, no focal deficits noted. Psychologic: Affect normal, judgement normal, mood normal. Current Patient Data: Labs: Laboratory Tests Test 12/24/20 09:35 White Blood Count 6.9 x10^3/uL (4.0-11.0) Red Blood Count 4.76 x10^6/uL (3.50-5.40) Hemoglobin 14.0 g/dL (12.0-15.5) Hematocrit 40.8 % (36.0-47.0) Mean Corpuscular Volume 86 fL (79-100) Mean Corpuscular Hemoglobin 30 pg (25-35) Mean Corpuscular Hemoglobin Concent 34 g/dL (31-37) Red Cell Distribution Width 13.0 % (11.5-14.5) Platelet Count 207 x10^3/uL (140-400) Neutrophils (%) (Auto) 63 % (31-73) Lymphocytes (%) (Auto) 24 % (24-48) Monocytes (%) (Auto) 7 % (0-9) Eosinophils (%) (Auto) 4 % (0-3) H Basophils (%) (Auto) 1 % (0-3) Neutrophils # (Auto) 4.4 x10^3/uL (1.8-7.7) Lymphocytes # (Auto) 1.7 x10^3/uL (1.0-4.8) Monocytes # (Auto) 0.5 x10^3/uL (0.0-1.1) Eosinophils # (Auto) 0.3 x10^3/uL (0.0-0.7) Basophils # (Auto) 0.1 x10^3/uL (0.0-0.2) Laboratory Tests 12/24/20 09:35 Vital Signs: Vital Signs Date Time Temp Pulse Resp B/P (MAP) Pulse Ox O2 Delivery O2 Flow Rate FiO2 12/24/20 09:49 20 99 Room Air 12/24/20 09:07 98.0 82 122/81 (95) 98.0 EKG: EKG: [] Radiology/Procedures: Radiology/Procedures: PATIENT: SHAYY GREENFIELD ACCOUNT: [id number] : 1990 LOCATION: ER AGE: 30 SEX: F EXAM STATUS: REG ER ORD. PHYSICIAN: SURAJ AREVALO APRN REASON: Right upper quadrant pain PROCEDURE: CT ABD PELV W/ IV CONTRST ONLY Examination: CT of the abdomen pelvis with IV contrast HISTORY: History of right upper quadrant pain COMPARISON: None available TECHNIQUE: Axial CT images of the abdomen pelvis were performed with IV contrast. Coronal and sagittal reformats are performed Exposure: One or more of the following individualized dose reduction techniques were utilized for this examination: 1. Automated exposure control 2. Adjustment of the mA and/or kV according to patient size 3. Use of iterative reconstruction technique FINDINGS: The bibasilar lungs are clear. No evidence of free air identified in the abdomen.The liver, spleen, adrenals grossly appears unremarkable. Cholecystectomy changes identified. The stomach is mildly distended. The visualized pancreas grossly appears unremarkable. Mild fat stranding identified about the proximal small bowel loops in the region of the distal duodenum and jejunum likely mild enteritis. Feces and gas noted in the colon. The appendix is normal. The bilateral kidneys enhance symmetrically. There is a cystic structure identified in the right adnexa measuring 2.3 cm. The urinary bladder is mildly distended No evidence of lytic bony destructive lesion. IMPRESSION: 1. Mild fat stranding identified about the proximal small bowel loops in the region of the distal duodenum and jejunum likely mild enteritis. 2. 2.3 cm cystic structure identified in the right adnexa probably right ovarian follicle or cyst. Electronically signed by: Eugenio Paiz MD (12/24/2020 12:23 PM) [id number] Course & Med Decision Making: Course & Med Decision Making Pertinent Labs and Imaging studies reviewed. (See chart for details) 30-year-old female, vital signs reviewed, presents emergency department concerning right upper quadrant pain after eating for the past 3 weeks. Physical examination concerning for acute abdominal process, will order CBC, CMP, lipase, urinalysis assay, urine test. Will give IV medication for nausea and pain. CT abdomen pelvis with IV contrast. CT abdomen pelvis concerning for gastroenteritis, labs unremarkable, patient did have abnormal urinalysis with positive nitrites however negative leukocyte Estrace. Abdominal pain most likely a viral source. We will treat with pain medications, Pepcid, Zofran ODT. Will start on Keflex regimen for abnormal ur ine result. Upon reevaluation of the patient, patient states she has had pain relief, discussed findings of CT and lab work. Discussed with patient medications Pepcid, Zofran, pain medicines, patient is amenable to ED discharge planning. Discussed with the patient all findings and diagnostic testing as well as the need to follow-up with their primary care provider for further evaluation and treatment or return to the ED if any new or worsening symptoms. Strict return precautions were also discussed at length, the patient voiced understanding and agreement with the discharge planning. The patient was nontoxic in appearance, in no apparent distress, and hemodynamically stable at the time of disposition. Dragon Disclaimer: Dragon Disclaimer: This electronic medical record was generated, in whole or in part, using a voice recognition dictation system. Departure Departure Impression: Primary Impression: Abdominal pain Qualified Codes: R10.11 - Right upper quadrant pain Additional Impression: Abnormal result on screening urine test Disposition: HOME / SELF CARE / HOMELESS Condition: GOOD Referrals: UNKNOWN PCP NAME (PCP) Patient Instructions: Abdominal Pain Additional Instructions: You were seen today in the emergency department for abdominal pain that has been affecting for the past 3 weeks. An extensive abdominal work-up was done today, it appears you have some inflammation to your small bowel this is most likely a viral source. As we discussed I have started you on Pepcid to take in the evening once a day, you may also take [id number] Tylenol and or Motrin for pain. I am prescribing you Zofran for nausea. Your urine test had an abnormally high nitrite count, this can indicate a urinary tract infection, therefore I am starting you on Keflex to take twice a day for the next 7 days, please take as directed. Please follow-up with your primary care physician this week for ongoing abdominal pains. Thank you for visiting our Emergency Department. It was a pleasure taking care of you today in the emergency department and we appreciate you trusting us with your care. If any additional problems come up don't hesitate to return to visit us. Please follow up with your primary care provider so they can plan additional care if needed and know about the problem that you had. If symptoms worsen come back to the Emergency Department. Any concerning symptoms that start such as chest pain, shortness of air, weakness or numbness on one side of the body, running high fevers or any other concerning symptoms return to the ER. EMERGENCY DEPARTMENT GENERAL DISCHARGE INSTRUCTIONS Thank you for coming to [facility] Emergency Department (ED) today and trusting us with you care. We trust that you had a positive experience in our Emergency Department. If you wish to speak to the department management, you may call the Director at [phone]. YOUR FOLLOW UP INSTRUCTIONS ARE FOLLOWS: 1. Do you have a private Doctor? If you do not have a private doctor, please a sk for a resource list of physicians or clinics that may be able to assist you with follow up care. 2. The Emergency Physicain has interpreted your x-rays. The X-Ray specialist will also review them. If there is a change in the findings, you will be notified in 48 hours when at all possible. 3. A lab test or culture has been done, your results will be reviewed and you will be notified if you need a change in treatment. ADDITIONAL INSTRUCTIONS AND INFORMATION: 1. Your care today has been supervised by a physician who is specially trained in emergency care. Many problems require more than one evaluation for a complete diagnosis and treatment. We recommend that you schedule your follow up appointment as recommended to ensure complete treatment of you illness or injury. If you are unable to obtain follow up care and continue to have a problem, or if your condition worsens, we recommend that you return to the ED. 2. We are not able to safely determine your condition over the phone nor are we able to give sound medical advice over the phone. For these safety reasons, if you call for medical advice we will ask you to come to the ED for further evaluation. 3. If you have any questions regarding these discharge instructions please call the ED at [phone]. SAFETY INFORMATION: In the interest of safety, wellness, and injury prevention; we encourage you to wear your sealbelt, if you smoke; quite smoking, and we encourage family to use a protective helmet for bicycling and other sporting events that present an increased risk for head injury. IF YOUR SYMPTOMS WORSEN OR NEW SYMPTOMS DEVELOP, OR YOU HAVE CONCERNS ABOUT YOUR CONDITION; OR IF YOUR CONDITION WORSENS WHILE YOU ARE WAITING FOR YOUR FOLLOW UP APPOINTMENT; EITHER CONTACT YOUR PRIMARY CARE DOCTOR, THE PHYSICIAN WHOSE NAME AND NUMBER YOU WERE GIVEN, OR RETURN TO THE ED IMMEDIATELY. Scripts Cephalexin (KEFLEX) 500 Mg Capsule 1 CAP PO BID for abnormal urine test for 7 Days, #14 CAP Prov: SURAJ AREVALO FOUR SLIDE MACHINE OPERATOR 12/24/20 Famotidine (FAMOTIDINE) 20 Mg Tablet 20 MG PO HS for abdomen pain for 30 Days, #30 TAB 0 Refills Prov: SURAJ AREVALO APRN 12/24/20 Ibuprofen (IBUPROFEN) 600 Mg Tablet 600 MG PO PRN Q6HRS PRN for INFLAMMATION, #30 TAB 0 Refills Prov: SURAJ AREVALO APRN 12/24/20 Ondansetron (ONDANSETRON ODT) 4 Mg Tab.rapdis 1 TAB PO PRN Q6-8HRS for nausea, #16 TAB 0 Refills Prov: SURAJ AREVALO APRN 12/24/20 SURAJ AREVALO APRN Dec 24, 2020 10:07
[2020-12-24 10:11] LABS: CALCIUM 8.4 mg/dL (8.5-10.1); CREATININE 0.7 mg/dL (0.6-1.0); GFR 98.9; POTASSIUM 3.9 mmol/L (3.5-5.1)
[2020-12-24 10:18] LABS: ALBUMIN 3.8 g/dL (3.4-5.0); ALBUMIN/GLOBULIN RATIO 1.1 (1.0-1.7); TOTAL BILIRUBIN 0.4 mg/dL (0.2-1.0); TOTAL PROTEIN 7.3 g/dL (6.4-8.2)
[2020-12-24 11:22] LABS: BILIRUBIN,URINE NEGATIVE (NEG); CLARITY,URINE CLEAR; COLOR,URINE YELLOW; NITRITE,URINE POSITIVE (NEG); PH,URINE 6.5 (<5.0-8.0); PROTEIN,URINE NEGATIVE (NEG-TRACE); UROBILINOGEN,URINE 0.2 mg/dL (0.2 mg/dL)
[2020-12-24 11:39] LABS: BACTERIA,URINE MANY /HPF (0-FEW); RBC,URINE 0 /HPF (0-2)
[2020-12-24] MEDS ORDERED: IOHEXOL 300 MG/ML 100ML VIAL. IV ONE (12:00)
--- NOTE | 2020-12-24 12:26 | RAD ---
Examination: CT of the abdomen pelvis with IV contrast HISTORY: History of right upper quadrant pain COMPARISON: None available TECHNIQUE: Axial CT images of the abdomen pelvis were performed with IV contrast. Coronal and sagitta l reformats are performed Exposure: One or more of the following individualized dose reduction techniques were utilized for thi s examination: 1. Automated exposure control 2. Adjustment of the mA and/or kV according to patient size 3. Use of iterative reconstruction technique FINDINGS: The bibasilar lungs are clear. No evidence of free air identified in the abdomen.The liver, spleen, a drenals grossly appears unremarkable. Cholecystectomy changes identified. The stomach is mildly diste nded. The visualized pancreas grossly appears unremarkable. Mild fat stranding identified about the p roximal small bowel loops in the region of the distal duodenum and jejunum likely mild enteritis. Feces and gas noted in the colon. The appendix is normal. The bilateral kidneys enhance symmetrically . There is a cystic structure identified in the right adnexa measuring 2.3 cm. The urinary bladder is mildly distended No evidence of lytic bony destructive lesion. IMPRESSION: 1. Mild fat stranding identified about the proximal small bowel loops in the region of the distal duo denum and jejunum likely mild enteritis. 2. 2.3 cm cystic structure identified in the right adnexa probably right ovarian follicle or cyst. Electronically signed by: Eugenio Paiz MD (12/24/2020 12:23 PM) [id number]
[2020-12-24 14:09] VITALS: BP 102/53
[2020-12-24] MEDS ORDERED: IBUP-1007 PO (14:12)
[2020-12-24] MEDS ORDERED: ONDA4TAB12 PO (14:12)
[2020-12-24] MEDS ORDERED: FAMO20TA5 PO (14:12)
[2020-12-24] MEDS ORDERED: CEPH500C PO (14:43)
== END 2020-12-24 14:40 | disposition home or self-care (01) ==
LOC: ER 08:35
DX: R10.11 Right upper quadrant pain (principal); R82.998 Other abnormal findings in urine; Z90.49 Acquired absence of other specified parts of digestive tract
CPT/HCPCS: 36415; 74177; 80053; 81001; 81025; 83690; 85025; 87086; 96361; 96374; 96375; 99285; J2270; J2405; J7030; Q9967

== ENCOUNTER → 2020-12-27 | Emergency (ER) | payer SELFPAY ==
[2020-12-24 14:09] VITALS: BP 102/53
[~2020-12-27] MED LIST changes: +CEPH500C PO; +FAMO20TA5 PO; +IBUP-1007 PO
== END | disposition left against medical advice (07) ==
LOC: ER 18:07
DX: R10.9 Unspecified abdominal pain (principal); Z53.21 Procedure and treatment not carried out due to patient leaving prior to being seen by health care provider